=== PATIENT | male | born 1935 | race Hispanic/Latino ===

== ENCOUNTER 2021-04-30 12:00 | Emergency (ER) | payer SELFPAY ==
[~2021-04-30] VITALS: Ht 172.7 cm; Wt 65.8 kg
[2021-04-30 13:23] VITALS: BP 142/88
== END 2021-04-30 13:25 | disposition home or self-care (01) ==
LOC: ER 12:06
DX: A15.8 Other respiratory tuberculosis (principal)
CPT/HCPCS: 99282